=== PATIENT | female | born 1940 | race Caucasian/White ===

== ENCOUNTER 2018-08-12 17:36 | Emergency (ER) | payer MEDICARE, BC ==
--- NOTE | 2018-08-12 18:25 | EDM.PDOC ---
ED HPI GENERAL MEDICAL PROBLEM - General Chief Complaint: Respiratory Problem Stated Complaint: SOB Time Seen by Provider: 08/12/18 17:53 Source of Information: Reports: Patient, RN Notes Reviewed History Limitations: Reports: No Limitations - History of Present Illness INITIAL COMMENTS - FREE TEXT/NARRATIVE: Patient is a 78-year-old female who presents to the ED for the evaluation of increasing shortness of breath. The patient notes she does have a history of COPD. She states that since Friday she has had increased work of breathing, with a harsh cough that has developed into a productive cough with bright yellow phlegm. The patient states she was seen down at the [facility] today, and was given a nebulizer, chest x-ray, lab work. It was felt that she should come to the [place] ER for possible hospital bed admission due to pneumonia versus bronchitis, with fluid on her lungs. The patient states that she has had increasing work of breathing and it is harder to breathe. However she states it is not worse when she lays flat. She has also increased cough, fever/chills, but no nausea/vomiting/diarrhea. The patient states she does wear oxygen at night, and when she takes a nap during the day. The patient notes that she does take a nebulizer 4 times a day, and budesonide twice daily. The patient states she has been taking Mucinex and this is not helping any longer. - Related Data Allergies Allergy/AdvReac Type Severity Reaction Status Date / Time fluticasone [From Flonase] Allergy Hypotension Verified 08/12/18 18:09 Home Meds: Home Meds ALPRAZolam [Alprazolam] 08/12/18 [History] Albuterol Sulfate [Proair Hfa] 08/12/18 [History] Aspirin [Adult Low Dose Aspirin EC] 08/12/18 [History] Budesonide [Pulmicort] 08/12/18 [History] Escitalopram [Lexapro] 08/12/18 [History] Meclizine [Antivert] 08/12/18 [History] Potassium Chloride [Klor-Con 10] 08/12/18 [History] Triamterene/Hydrochlorothiazid [Triamterene-HCTZ 37.5-25 MG] 08/12/18 [History] Past Medical History HEENT History: Reports: Allergic Rhinitis Cardiovascular History: Reports: Bypass, Hypertension, SOB on Exertion Respiratory History: Reports: COPD - Past Surgical History Cardiovascular Surgical History: Reports: Coronary Artery Bypass Social & Family History - Family History Family Medical History: Noncontributory - Tobacco Use Smoking Status *Q: Former Smoker Used Tobacco, but Quit: Yes Month/Year Tobacco Last Used: 1999 ED ROS GENERAL - Review of Systems Review Of Systems: See Below Constitutional: Reports: Fever, Chills HEENT: Reports: No Symptoms Respiratory: Reports: Shortness of Breath, Wheezing, Cough, Sputum Cardiovascular: Denies: Chest Pain, Edema, Lightheadedness Endocrine: Reports: No Symptoms GI/Abdominal: Reports: No Symptoms : Reports: No Symptoms Musculoskeletal: Reports: No Symptoms Skin: Reports: No Symptoms Neurological: Reports: No Symptoms Psychiatric: Reports: No Symptoms Hematologic/Lymphatic: Reports: No Symptoms Immunologic: Reports: No Symptoms ED EXAM, GENERAL - Physical Exam Exam: See Below Exam Limited By: No Limitations General Appearance: Alert, WD/WN, Mild Distress (pt is in mild respiratory distress.), Obese Eye Exam: Bilateral Eye: Normal Inspection Ears: Normal External Exam Nose: Normal Inspection Throat/Mouth: Normal Inspection, Normal Lips, Normal Teeth, Normal Oropharynx, Normal Voice, No Airway Compromise Head: Atraumatic, Normocephalic Neck: Normal Inspection Respiratory/Chest: No Accessory Muscle Use, Chest Non-Tender, Respiratory Distress (mild), Rhonchi (diffuse bilaterally), Wheezing (diffuse bilaterally) Cardiovascular: Normal Peripheral Pulses, Regular Rate, Rhythm, No Murmur GI/Abdominal: Normal Bowel Sounds, Soft, Non-Tender, No Distention, No Mass Extremities: Normal Inspection, Normal Range of Motion, Normal Capillary Refill Neurological: Alert, Oriented, Normal Cognition, No Motor/Sensory Deficits Psychiatric: Normal Affect, Normal Mood Skin Exam: Warm, Dry, Intact, Normal Color, No Rash Course - Vital Signs Last Recorded V/S: Last Vital Signs Temp 98.8 F 08/12/18 17:47 Pulse 78 08/12/18 17:47 Resp 20 08/12/18 17:47 BP Pulse Ox 87 L 08/12/18 17:47 - Orders/Labs/Meds Orders: Active Orders 24 hr Category Date Time Status RT Aerosol Therapy [RC] ASDIRECTED Care 08/12/18 18:19 Active Chest 2V [CR] Stat Exams 08/12/18 18:18 Taken Labs: Laboratory Tests 08/12/18 08/12/18 08/12/18 Range/Units 18:56 18:56 18:56 WBC 4.95 (3.98-10.04) K/mm3 RBC 4.40 (3.98-5.22) M/mm3 Hgb 13.3 (11.2-15.7) gm/L Hct 41.2 (34.1-44.9) % MCV 93.6 (79.4-94.8) fl MCH 30.2 (25.6-32.2) pg MCHC 32.3 (32.2-35.5) g/dl RDW Std Deviation 49.1 H (36.4-46.3) fL Plt Count 145 L (182-369) K/mm3 MPV 9.4 (9.4-12.3) fl Neutrophils % (Manual) 63 H (40-60) % Band Neutrophils % 7 (0-10) % Lymphocytes % (Manual) 22 (20-40) % Atypical Lymphs % 0 % Monocytes % (Manual) 7 (2-10) % Eosinophils % (Manual) 0 L (0.7-5.8) % Basophils % (Manual) 1 (0.1-1.2) Platelet Estimate Decreased Plt Morphology Comment Normal RBC Morph Comment Normal Sodium 138 (136-145) mEq/L Potassium 3.4 L (3.5-5.1) mEq/L Chloride 98 (98-107) mEq/L Carbon Dioxide 32 (21-32) mEq/L Anion Gap 11.4 (5-15) BUN 13 (7-18) mg/dL Creatinine 0.9 (0.55-1.02) mg/dL Est Cr Clr Drug Dosing 37.60 mL/min Estimated GFR (MDRD) > 60 (>60) mL/min BUN/Creatinine Ratio 14.4 (14-18) Glucose 121 H (83-115) mg/dL Calcium 9.0 (8.5-10.1) mg/dL Total Bilirubin 0.6 (0.2-1.0) mg/dL AST 84 H (15-37) U/L ALT 90 H (14-59) U/L Alkaline Phosphatase 71 (46-116) U/L NT-Pro-B Natriuret Pep 1329 H (0-450) pg/mL Total Protein 7.7 (6.4-8.2) g/dl Albumin 4.0 (3.4-5.0) g/dl Globulin 3.7 gm/dL Albumin/Globulin Ratio 1.1 (1-2) Meds: Medications Discontinued Medications Generic Name Dose Route Start Last Admin Trade Name Jermanq PRN Reason Stop Dose Admin Albuterol/Ipratropium 3 ml 08/12/18 18:18 08/12/18 18:55 Duoneb 3.0-0.5 Mg/3 Ml NEB 08/12/18 18:19 3 ml ONETIME ONE Administration Furosemide 40 mg 08/12/18 20:30 08/12/18 20:47 Lasix PO 08/12/18 20:31 40 mg ONETIME ONE Administration Potassium Chloride 40 meq 08/12/18 20:31 08/12/18 20:47 Klor-Con M20 PO 08/12/18 20:32 40 meq ONETIME ONE Administration - Re-Assessments/Exams Free Text/Narrative Re-Assessment/Exam: 08/12/18 18:30 Patient presents to the ED for evaluation of increasing shortness of breath. She did have a workup done at the [facility] today, however we are not able to obtain the records. I have ordered another chest x-ray be done, with a CBC, CMP and a BNP for further lab evaluation. I did also order a DuoNeb to be given to the patient as she is still quite wheezy. 08/12/18 20:41 Patient's x-ray is done, and labs are back. Everything is suggestive for a mild CHF exacerbation. She does have some fluid visible on her right lung base , and her BNP is 1329, her potassium is 3.4. I have ordered 40 mg by mouth Lasix, and 40 mEq potassium to be given. For supplementation. I do not believe that she is acutely ill enough to warrant a hospital stay, she states that she does have a prescription for a water pill that was given to her from the [facility] today. She will have that filled tomorrow. The patient should likely be okay to go home with this dose of PO Lasix, as she already has oxygen and nebulizers at home. Departure - Departure Time of Disposition: 20:48 Disposition: Home, Self-Care 01 Condition: Fair Clinical Impression: Congestive heart failure Qualifiers: Heart failure type: unspecified Heart failure chronicity: unspecified Qualified Code(s): I50.9 - Heart failure, unspecified - Discharge Information *PRESCRIPTION DRUG MONITORING PROGRAM REVIEWED*: No *COPY OF PRESCRIPTION DRUG MONITORING REPORT IN PATIENT BEATRICE: No Instructions: Shortness of Breath, Adult, [id number], Heart Failure, Easy-to- Read Referrals: PCP,None [Primary Care Provider] - Forms: ED Department Discharge Additional Instructions: You have been evaluated in the ED today for your increasing shortness of breath. Your labs did not demonstrate any sign of an acute bacterial infection at this time such as pneumonia, they did however suggest that you are slightly fluid overloaded, you were given a one-time dose of Lasix with potassium supplementation in the ER today, this should provide her some relief of your symptoms. You have been given a prescription for Lasix by the provider at the [facility], please have this filled tomorrow and take as directed for further heart failure relief. Please take your nebulizers as previously directed for your COPD. Please wear your oxygen as previously directed for use with sleep. Recommend that you follow up with a primary care provider so that you may have your heart failure evaluated further, with echocardiography. Please return to the ED if your symptoms should change or worsen. - My Orders Last 24 Hours: My Active Orders 08/12/18 18:18 Chest 2V [CR] Stat 08/12/18 18:19 RT Aerosol Therapy [RC] ASDIRECTED - Assessment/Plan Last 24 Hours: My Active Orders 08/12/18 18:18 Chest 2V [CR] Stat 08/12/18 18:19 RT Aerosol Therapy [RC] ASDIRECTED
[2018-08-12] MEDS: Albuterol/Ipratropium 3.0-0.5 MG/3 ML Neb Soln NEB ONE (18:55)
[2018-08-12] MEDS: Furosemide 40 MG Tab PO ONE (20:47)
[2018-08-12] MEDS: Potassium Chloride 20 MEQ Tab.ER PO ONE (20:47)
--- NOTE | 2018-08-13 06:22 | CR ---
Chest: Two views of the chest are obtained. Comparison: Prior chest x-ray of 04/04/13. Heart size is slightly prominent. Previous sternotomy is noted. Slight scarring is seen within both mid to lower lungs. Central lung markings mildly increased which appear stable. No acute parenchymal change is seen. Slight emphysematous change is believed to be present. Mild degenerative change is scattered throughout the spine. Impression: 1. Multiple findings as noted above. Nothing acute is suspected on two-view chest x-ray. Diagnostic code #3
== END 2018-08-12 22:00 | disposition home or self-care (01) ==
LOC: JD.ED 17:36
DX: I11.0 Hypertensive heart disease with heart failure (principal); I50.9 Heart failure, unspecified; Z95.1 Presence of aortocoronary bypass graft; Z88.8 Allergy status to other drugs, medicaments and biological substances; Z79.82 Long term (current) use of aspirin; Z79.899 Other long term (current) drug therapy; Z87.891 Personal history of nicotine dependence
CPT/HCPCS: 36415; 71046; 80053; 83880; 85007; 85027; 94640; 99285; A9270; 99283; J7620-GY

== ENCOUNTER 2024-06-09 14:30 | Inpatient (IN) | payer MEDICARE, BC ==
[2024-06-09] MEDS: Adenosine 6 MG/2 ML SDV IVPUSH ONE (15:05)
[2024-06-09] MEDS ORDERED: Adenosine 6 MG/2 ML SDV IVPUSH ONE (15:07)
[2024-06-09 15:15] LABS: BASOPHILS PERCENT AUTO 0.3 % (0.0-1.0); EOSINOPHILS PERCENT AUTO 0.1 % (0.0-6.0); HEMATOCRIT 40.5 % (37.0-47.0); HEMOGLOBIN 12.7 gm/dl (12.0-16.0); IMMATURE GRAN ABSOLUTE AUTO 0.02 K/mm3 (0.00-0.05); IMMATURE GRAN PERCENT AUTO 0.3 % (0.0-0.4); LYMPHOCYTES ABSOLUTE AUTO 0.7 K/mm3 (1.0-4.8); LYMPHOCYTES PERCENT AUTO 9.9 % (24.0-44.0); MEAN CORPUSCULAR HEMOGLOBIN 29.8 pg (28.0-32.0); MEAN CORPUSCULAR HGB CONC 31.4 g/dl (32.0-36.0); MEAN CORPUSCULAR VOLUME 95.1 fl (83.0-99.0); MONOCYTES ABSOLUTE AUTO 0.3 K/mm3 (0.0-0.8); MONOCYTES PERCENT AUTO 4.5 % (0.0-8.0); NEUTROPHILS PERCENT AUTO 84.9 % (41.0-71.0); PLATELET COUNT,PLT 143 K/mm3 (150-400); RED BLOOD CELL COUNT 4.26 M/mm3 (4.10-5.30); WHITE BLOOD CELL COUNT,WBC 7.04 K/mm3 (3.9-11.3)
[2024-06-09] MEDS: Adenosine 12 MG/4 ML SDV IVPUSH ONE (15:16)
[2024-06-09] MEDS: Diltiazem 25 MG/5 ML SDV IVPUSH ONE (15:24)
[2024-06-09] MEDS: Diltiazem 125 MG in Sodium Chloride 0.9% 100 ML IV SCH ×2 (15:26→18:11)
[2024-06-09 15:46] LABS: A/G RATIO 1.1 (1-2); ALBUMIN 3.6 g/dl (3.4-5.0); ANION GAP 10.8 (5-15); BILIRUBIN TOTAL 1.4 mg/dL (0.2-1.0); BUN/CREATININE RATIO 11.1 (14-18); CALCIUM 8.8 mg/dL (8.5-10.1); CREATININE 0.9 mg/dL (0.55-1.02); EST CRCL DRUG DOSING (CG) 34.02 mL/min; MAGNESIUM 1.6 mg/dL (1.8-2.4); POTASSIUM,K 3.8 mEq/L (3.5-5.1); PROTEIN TOTAL,TP 6.9 g/dl (6.4-8.2); TSH 0.728 uIU/mL (0.358-3.74)
[2024-06-09] MEDS ORDERED: Meclizine 12.5 MG Tab PO PRN (16:48)
[2024-06-09] MEDS ORDERED: 50% Dextrose in Water 50 ML Syringe IVPUSH PRN (16:57)
[2024-06-09] MEDS ORDERED: Ondansetron 4 MG/2 ML SDV IV PRN (17:01)
[2024-06-09] MEDS ORDERED: Sennosides/Docusate Sodium 50-8.6 MG Tab PO PRN (17:01)
[2024-06-09] MEDS ORDERED: Melatonin 3 MG Tab PO PRN (17:01)
[2024-06-09] MEDS ORDERED: Naloxone 0.4 MG/ML SDV IVPUSH PRN (17:01)
[2024-06-09] MEDS ORDERED: oxyCODONE 5 MG Tab PO PRN (17:01)
[2024-06-09] MEDS ORDERED: Morphine 2 MG/ML SYRINGE IVPUSH PRN (17:01)
[2024-06-09] MEDS ORDERED: Acetaminophen 325 MG Tab PO PRN (17:01)
[2024-06-09 17:11] LABS: HEMOGLOBIN A1C 5.8 %
[2024-06-09] MEDS: Insulin Lispro 100 Unit/ML 3 ML KwikPen SUBCUT SCH (17:16)
[2024-06-09] MEDS: Furosemide 20 MG/2 ML VIAL IVPUSH ONE (17:20)
[2024-06-09 17:22] LABS: TSH 0.735 uIU/mL (0.358-3.74)
[2024-06-09] MEDS: Magnesium Sulf/Wat 4 GM/50 mL 4 GM in Premix Bag 1 BAG IV ONE (17:25)
[2024-06-09] MEDS: Heparin Sodium 5,000 Units/ML Vial IVPUSH ONE (17:33)
[2024-06-09] MEDS: Heparin Sodium/D5W 250 ML IV SCH (17:34)
[2024-06-09 18:38] LABS: APPEARANCE,URINE CLEAR (Clear); BILIRUBIN,URINE NEGATIVE (Negative); COLOR,URINE YELLOW (Yellow); GLUCOSE,URINE NEGATIVE (Negative); KETONES,URINE NEGATIVE (Negative); LEUKOCYTE ESTERASE,URINE NEGATIVE (Negative); NITRITE,URINE NEGATIVE (Negative); OCCULT BLOOD,URINE NEGATIVE (Negative); PROTEIN,URINE NEGATIVE (Negative); UROBILINOGEN,URINE 0.2 (0.2-1.0)
[2024-06-09] MEDS ORDERED: ALPRAZolam 0.5 MG Tab PO SCH (21:00)
[2024-06-09] MEDS: ALPRAZolam 0.5 MG Tab PO PRN (21:15)
[2024-06-09] MEDS: Famotidine 20 MG/2 ML SDV IVPUSH SCH (21:15)
[2024-06-09] MEDS: Metoprolol Tartrate 25 MG Tab PO SCH (21:15)
[2024-06-09] MEDS: Albuterol/Ipratropium 3.0-0.5 MG/3 ML Neb Soln NEB PRN (21:48)
[2024-06-10] MEDS: Heparin Sodium 5,000 Units/ML Vial IVPUSH ONE (00:17)
[2024-06-10 06:55] LABS: BASOPHILS PERCENT AUTO 0.3 % (0.0-1.0); EOSINOPHILS PERCENT AUTO 0.5 % (0.0-6.0); HEMATOCRIT 41.3 % (37.0-47.0); HEMOGLOBIN 12.7 gm/dl (12.0-16.0); IMMATURE GRAN ABSOLUTE AUTO 0.02 K/mm3 (0.00-0.05); IMMATURE GRAN PERCENT AUTO 0.3 % (0.0-0.4); LYMPHOCYTES ABSOLUTE AUTO 0.9 K/mm3 (1.0-4.8); LYMPHOCYTES PERCENT AUTO 14.5 % (24.0-44.0); MEAN CORPUSCULAR HEMOGLOBIN 29.7 pg (28.0-32.0); MEAN CORPUSCULAR HGB CONC 30.8 g/dl (32.0-36.0); MEAN CORPUSCULAR VOLUME 96.5 fl (83.0-99.0); MEAN PLATELET VOLUME 10.3 fl (9.4-12.3); MONOCYTES ABSOLUTE AUTO 0.4 K/mm3 (0.0-0.8); MONOCYTES PERCENT AUTO 6.1 % (0.0-8.0); NEUTROPHILS ABSOLUTE AUTO 4.9 K/mm3 (1.8-7.7); NEUTROPHILS PERCENT AUTO 78.3 % (41.0-71.0); PLATELET COUNT,PLT 142 K/mm3 (150-400); RED BLOOD CELL COUNT 4.28 M/mm3 (4.10-5.30); WHITE BLOOD CELL COUNT,WBC 6.22 K/mm3 (3.9-11.3)
[2024-06-10 07:21] LABS: A/G RATIO 1.1 (1-2); ALBUMIN 3.6 g/dl (3.4-5.0); ANION GAP 7.8 (5-15); BILIRUBIN TOTAL 1.3 mg/dL (0.2-1.0); BUN/CREATININE RATIO 14.4 (14-18); C-REACTIVE PROTEIN 5.86 mg/dL (<0.30); CALCIUM 8.6 mg/dL (8.5-10.1); CREATININE 0.9 mg/dL (0.55-1.02); EST CRCL DRUG DOSING (CG) 34.02 mL/min; MAGNESIUM 2.5 mg/dL (1.8-2.4); PHOSPHORUS 3.6 mg/dL (2.6-4.7); POTASSIUM,K 3.8 mEq/L (3.5-5.1); PROTEIN TOTAL,TP 6.8 g/dl (6.4-8.2)
[2024-06-10] MEDS: Potassium Chloride 20 MEQ Tab.ER PO ONE (08:36)
[2024-06-10] MEDS: Aspirin 81 MG Tab.EC PO SCH (08:37)
[2024-06-10] MEDS: Cholecalciferol (Vitamin D3) 25 MCG Tab PO SCH (08:37)
[2024-06-10] MEDS: Metoprolol Succinate 50 MG Tab.ER PO SCH (08:37)
[2024-06-10] MEDS: Furosemide 20 MG/2 ML VIAL IVPUSH ONE (10:42)
[2024-06-10] MEDS: Albuterol/Ipratropium 3.0-0.5 MG/3 ML Neb Soln NEB PRN (15:01)
[2024-06-10] MEDS: Metoprolol Tartrate 50 MG Tab PO SCH (20:36)
[2024-06-11] MEDS: Heparin Sodium 5,000 Units/ML Vial IVPUSH PRN (00:50)
[2024-06-11 07:47] LABS: ANION GAP 10.5 (5-15); CREATININE 0.9 mg/dL (0.55-1.02); EST CRCL DRUG DOSING (CG) 34.02 mL/min; POTASSIUM,K 4.5 mEq/L (3.5-5.1)
[2024-06-11] MEDS ORDERED: Sacubitril/Valsartan 1 EACH Tablet PO SCH (09:00)
== END 2024-06-11 09:35 | DRG 291 ==
LOC: JD.ED 14:30 → JD.ICU 16:25 → MERGE 16:25 → EEVIPCON 16:25
PROVIDERS: ADMIT Student in an Organized Health Care Education/Training Program; ATTEND Student in an Organized Health Care Education/Training Program
DX: I11.0 Hypertensive heart disease with heart failure (principal); I50.21 Acute systolic (congestive) heart failure; J96.21 Acute and chronic respiratory failure with hypoxia; I47.10 Supraventricular tachycardia, unspecified; I49.9 Cardiac arrhythmia, unspecified; I25.10 Atherosclerotic heart disease of native coronary artery without angina pectoris; F17.290 Nicotine dependence, other tobacco product, uncomplicated; I48.91 Unspecified atrial fibrillation; H54.7 Unspecified visual loss; J44.9 Chronic obstructive pulmonary disease, unspecified; F15.90 Other stimulant use, unspecified, uncomplicated; R32 Unspecified urinary incontinence; R73.9 Hyperglycemia, unspecified; F41.9 Anxiety disorder, unspecified; Z98.49 Cataract extraction status, unspecified eye; Z95.1 Presence of aortocoronary bypass graft; Z87.81 Personal history of (healed) traumatic fracture; Z79.82 Long term (current) use of aspirin; Z79.899 Other long term (current) drug therapy; Z98.890 Other specified postprocedural states
CPT/HCPCS: 36415; 71045; 71045-26; 71046; 71046-26; 80048; 80053; 81003; 82947; 83036; 83735; 83880; 84100; 84443; 84484; 85025; 85730; 86140; 87428-QW; 93005; 93306; 94640; 96365; 96375; 97161-GP; 97530-GP; 99285-25; A9270-GY; J0153; J1644; J1940; J3475; J3490; J7620-GY

== ENCOUNTER 2024-08-17 13:55 | Emergency (ER) | payer MEDICARE, BC ==
[2024-08-17 14:48] LABS: BASOPHILS PERCENT AUTO 0.3 % (0.0-1.0); EOSINOPHILS PERCENT AUTO 0.3 % (0.0-6.0); IMMATURE GRAN ABSOLUTE AUTO 0.02 K/mm3 (0.00-0.05); IMMATURE GRAN PERCENT AUTO 0.3 % (0.0-0.4); LYMPHOCYTES ABSOLUTE AUTO 0.8 K/mm3 (1.0-4.8); LYMPHOCYTES PERCENT AUTO 10.9 % (24.0-44.0); MEAN CORPUSCULAR VOLUME 96.3 fl (83.0-99.0); MEAN PLATELET VOLUME 9.8 fl (9.4-12.3); MONOCYTES ABSOLUTE AUTO 0.4 K/mm3 (0.0-0.8); MONOCYTES PERCENT AUTO 5.8 % (0.0-8.0); NEUTROPHILS ABSOLUTE AUTO 5.8 K/mm3 (1.8-7.7); NEUTROPHILS PERCENT AUTO 82.4 % (41.0-71.0); NRBC ABSOLUTE 0.02 (0.00-0.02); NRBC PERCENT 0.3 % (0.0-0.2); PLATELET COUNT,PLT 226 K/mm3 (150-400); RED BLOOD CELL COUNT 2.18 M/mm3 (4.10-5.30); WHITE BLOOD CELL COUNT,WBC 7.06 K/mm3 (3.9-11.3)
[2024-08-17 14:59] LABS: HEMOGLOBIN 6.1 gm/dl (12.0-16.0)
[2024-08-17 15:27] LABS: A/G RATIO 1.1 (1-2); ALBUMIN 3.6 g/dl (3.4-5.0); BILIRUBIN TOTAL 0.6 mg/dL (0.2-1.0); BUN/CREATININE RATIO 17.3 (14-18); CALCIUM 8.9 mg/dL (8.5-10.1); CREATININE 1.1 mg/dL (0.55-1.02); EST CRCL DRUG DOSING (CG) 30.65 mL/min; PROTEIN TOTAL,TP 6.9 g/dl (6.4-8.2)
[2024-08-17 16:02] LABS: INR 2.23; PROTHROMBIN TIME 22.4 SECONDS (9.7-12.0)
[2024-08-17 16:03] LABS: PTT,PARTIAL THROMBOPLSTIN TIME 32.7 SECONDS (21.7-31.4)
[2024-08-17] MEDS: Albuterol/Ipratropium 3.0-0.5 MG/3 ML Neb Soln NEB ONE (16:41)
[2024-08-17] MEDS: Pantoprazole 40 MG Vial IVPUSH ONE (17:19)
[2024-08-17] MEDS ORDERED: Sodium Chloride 0.9% 250 ML ONE (17:32)
== END 2024-08-17 18:24 ==
LOC: JD.ED 13:55
DX: D64.9 Anemia, unspecified (principal); K92.1 Melena; R79.89 Other specified abnormal findings of blood chemistry; I10 Essential (primary) hypertension; I25.10 Atherosclerotic heart disease of native coronary artery without angina pectoris; Z79.899 Other long term (current) drug therapy; Z79.82 Long term (current) use of aspirin; Z88.8 Allergy status to other drugs, medicaments and biological substances
CPT/HCPCS: 36415; 36430; 71045; 80053; 83880; 84484; 85025; 85610; 85730; 86850; 86900; 86901; 86922; 87428; 93005; 94640; 96374; 99285; A9270; J2470; P9016; 93010

== ENCOUNTER 2024-08-28 07:46 | Emergency (ER) | payer MEDICARE, BC ==
[2024-08-28] MEDS ORDERED: Sodium Chloride 0.9% 10 ML Syringe FLUSH PRN (08:17)
[2024-08-28] MEDS: Albuterol/Ipratropium 3.0-0.5 MG/3 ML Neb Soln NEB SCH (08:35)
[2024-08-28 08:42] LABS: EOSINOPHILS PERCENT AUTO 0.3 % (0.0-6.0); HEMATOCRIT 33.3 % (37.0-47.0); HEMOGLOBIN 9.5 gm/dl (12.0-16.0); IMMATURE GRAN ABSOLUTE AUTO 0.04 K/mm3 (0.00-0.05); IMMATURE GRAN PERCENT AUTO 0.6 % (0.0-0.4); LYMPHOCYTES ABSOLUTE AUTO 0.4 K/mm3 (1.0-4.8); LYMPHOCYTES PERCENT AUTO 6.8 % (24.0-44.0); MEAN CORPUSCULAR HEMOGLOBIN 26.5 pg (28.0-32.0); MEAN CORPUSCULAR HGB CONC 28.5 g/dl (32.0-36.0); MEAN CORPUSCULAR VOLUME 92.8 fl (83.0-99.0); MEAN PLATELET VOLUME 9.6 fl (9.4-12.3); MONOCYTES ABSOLUTE AUTO 0.4 K/mm3 (0.0-0.8); MONOCYTES PERCENT AUTO 6.5 % (0.0-8.0); NEUTROPHILS ABSOLUTE AUTO 5.4 K/mm3 (1.8-7.7); NEUTROPHILS PERCENT AUTO 85.8 % (41.0-71.0); PLATELET COUNT,PLT 200 K/mm3 (150-400); RED BLOOD CELL COUNT 3.59 M/mm3 (4.10-5.30); WHITE BLOOD CELL COUNT,WBC 6.31 K/mm3 (3.9-11.3)
[2024-08-28] MEDS: methylPREDNISolone Sodium Succinate 125 MG/2 ML SDV IVPUSH ONE (08:50)
[2024-08-28 09:09] LABS: INR 1.17; PROTHROMBIN TIME 12.3 SECONDS (9.7-12.0)
[2024-08-28 09:19] LABS: A/G RATIO 1.1 (1-2); ALBUMIN 3.5 g/dl (3.4-5.0); ANION GAP 3.5 (5-15); BUN/CREATININE RATIO 32.5 (14-18); CALCIUM 9.2 mg/dL (8.5-10.1); CREATININE 0.8 mg/dL (0.55-1.02); EST CRCL DRUG DOSING (CG) 38.27 mL/min; POTASSIUM,K 3.5 mEq/L (3.5-5.1); PROTEIN TOTAL,TP 6.6 g/dl (6.4-8.2)
[2024-08-28 10:32] LABS: SLIDE REVIEW ABNORMAL SMEAR
[2024-08-28 11:33] LABS: BICARBONATE,ARTERIAL 47.5 meq/L (22.0-26.0); O2 SATURATION ARTERIAL 98.9 % (96.0-97.0)
[2024-08-28 11:34] LABS: BASE EXCESS ARTERIAL 20.3 (-2-2.0)
== END 2024-08-28 12:30 | disposition home or self-care (01) ==
LOC: JD.ED 07:46
DX: D64.9 Anemia, unspecified (principal); I11.0 Hypertensive heart disease with heart failure; I50.9 Heart failure, unspecified; J44.1 Chronic obstructive pulmonary disease with (acute) exacerbation; I25.810 Atherosclerosis of coronary artery bypass graft(s) without angina pectoris; Z88.8 Allergy status to other drugs, medicaments and biological substances; Z79.82 Long term (current) use of aspirin; Z79.01 Long term (current) use of anticoagulants; Z79.899 Other long term (current) drug therapy; Z87.891 Personal history of nicotine dependence
CPT/HCPCS: 36415; 36600; 71045; 80053; 82803; 83880; 84484; 85025; 85610; 87428; 93005; 93970; 94640; 96374; 99285; A9270; J2919; 93010; 99284